=== PATIENT | male | born 1960 ===

== ENCOUNTER 2020-10-03 06:15 | Emergency (ER) | payer OTHER ==
[2020-10-03] MEDS ORDERED: Proparacaine 0.5% Opth 15 ML BOT ONE (06:27)
[2020-10-03] MEDS ORDERED: Boostrix 0.5 ML (Tdap) VIAL ONE (06:27)
[2020-10-03] MEDS ORDERED: Fluorescein Opthalmic Strip ONE (06:29)
== END 2020-10-03 06:55 | disposition home or self-care (01) ==
LOC: ERS 06:15
DX: S05.02XA Injury of conjunctiva and corneal abrasion without foreign body, left eye, initial encounter (principal); W22.8XXA Striking against or struck by other objects, initial encounter; Y99.0 Civilian activity done for income or pay
CPT/HCPCS: 90471; 90715